=== PATIENT | female | born 1945 | race Caucasian/White ===

== ENCOUNTER 2018-01-08 11:15 | Inpatient (IN) | payer MEDICARE, BC ==
[2018-01-08 11:18] VITALS: BMI 24.2
--- NOTE | 2018-01-08 12:12 | ED PDOC ---
HPI: Psych/Substance Abuse Time Seen by Provider: 01/08/18 11:52 Chief Complaint (Nursing): Psychiatric Evaluation Chief Complaint (Provider): Psychiatric Evaluation History Per: Patient Onset/Duration Of Symptoms: Unknown Current Symptoms Are (Timing): Still Present Associated Symptoms: Suicidal Thoughts, Suicidal Plan Involuntary Hold By: None Additional Complaint(s): Jayla Sanchez is a 72 y/o female, with a past medical history of HTN, hypothyroidism, and aortic valve replacement, who presents to the ED due for suicidal ideation, onset is unclear. When questioned further patient was not a good historian and was not willing to give a plan or timing. She keeps repeating that she wants to be cremated and that she has many relatives. She repeats these statements over and over. EMS states that the patient's plan for suicide was to OD but patient did not provide any information regarding this. Patient is currently taking Coumadin. She denies any other complaints. PMD: None provided Per pharmacy in [place] Past Medical History Reviewed: Historical Data, Nursing Documentation, Vital Signs Vital Signs: Last Vital Signs Temp 98.2 F 01/08/18 11:18 Pulse 104 H 01/08/18 11:18 Resp 17 01/08/18 11:18 BP 173/71 H 01/08/18 11:18 Pulse Ox 98 01/08/18 11:18 - Medical History PMH: HTN, Hypothyroidism Denies: Diabetes, Hepatitis, HIV, Chronic Kidney Disease, Seizures, Sexually Transmitted Disease - Surgical History Surgical History: No Surg Hx - Family History Family History: States: Unknown Family Hx - Home Medications Home Medications: Ambulatory Orders Medication Instructions Recorded Enalapril Maleate [Vasotec] 10 mg PO DAILY 07/22/16 Ezetimibe [Zetia] 10 mg PO DAILY 07/22/16 Metoprolol Succinate XL [Toprol XL] 25 mg PO DAILY 07/22/16 Pravastatin Sodium [Pravachol] 40 mg PO DAILY 07/22/16 Warfarin [Coumadin] 8 mg PO DAILY 07/22/16 Levothyroxine [Synthroid] 88 mcg PO DAILY 01/08/18 - Allergies Allergies/Adverse Reactions: Allergies Allergy/AdvReac Type Severity Reaction Status Date / Time nitroglycerin Allergy ANAPHYLAXIS Verified 07/22/16 07:39 Penicillins Allergy RASH Verified 07/22/16 07:38 Review of Systems ROS Statement: Except As Marked, All Systems Reviewed And Found Negative Constitutional: Negative for: Fever Psych: Positive for: Suicidal ideation Physical Exam - Reviewed Nursing Documentation Reviewed: Yes Vital Signs Reviewed: Yes - Physical Exam Appears: Positive for: Non-toxic, No Acute Distress Head Exam: Positive for: ATRAUMATIC, NORMOCEPHALIC Skin: Positive for: Normal Color, Warm, Dry Eye Exam: Positive for: EOMI, Normal appearance, PERRL Neck: Positive for: Normal, Painless ROM Respiratory: Negative for: Respiratory Distress Extremity: Positive for: Normal ROM (upper and lower extremities). Negative for : Pedal Edema, Deformity Neurologic/Psych: Positive for: Alert, Oriented (x3), Gait (steady). Negative for: Motor/Sensory Deficits - Laboratory Results Result Diagrams: 01/08/18 12:50 01/08/18 12:50 - ECG O2 Sat by Pulse Oximetry: 98 (RA) Pulse Ox Interpretation: Normal Medical Decision Making Medical Decision Making: Time: 12:11 Initial Impression: suicidal ideation and psychosis. Differential diagnosis including but not limited to schizophrenia and bipolar disorder. Initial Plan: --Acetaminophen --Alcohol serum --BMP --EKG --PTT --PT --Drug Screen, urine --Salicylate --Crisis Eval --Chest portable [RAD] --ED Urine --CBC with differential --1:1 Observation --Urinalysis --Plan includes medical clearance and psych eval. 14:13 CXR FINDINGS: LUNGS: No active pulmonary disease. PLEURA: No significant pleural effusion identified, no pneumothorax apparent. CARDIOVASCULAR: Midline sternotomy and valvular prosthesis in place similar OSSEOUS STRUCTURES: Midline sternotomy VISUALIZED UPPER ABDOMEN: Normal. OTHER FINDINGS: None. IMPRESSION: No active disease. Scribe Attestation: Documented by Austin Carrillo, acting as a scribe for Nikko Rodriguez MD Provider Scribe Attestation: All medical record entries made by the Scribe were at my direction and personally dictated by me. I have reviewed the chart and agree that the record accurately reflects my personal performance of the history, physical exam, medical decision making, and the department course for this patient. I have also personally directed, reviewed, and agree with the discharge instructions and disposition. Disposition - Clinical Impression Clinical Impression: Coumadin toxicity, Dementia with psychosis - Patient ED Disposition Is Patient to be Admitted: Yes Discussed With : Terry Mccarthy Doctor Will See Patient In The: Hospital Counseled Patient/Family Regarding: Studies Performed, Diagnosis - Disposition Disposition Time: 16:30 Condition: FAIR - Pt Status Changed To: Hospital Disposition Of: Inpatient - Admit Certification Admit to Inpatient:: After my assessment, the patient will require hospitalization for at least two midnights. This is because of the severity of symptoms shown, intensity of services needed, and/or the medical risk in this patient being treated as an outpatient. - POA Present On Arrival: None
[2018-01-08 13:01] LABS: BASO % 0.4 % (0.0-2.0); EOS % 0.3 % (0.0-4.0); LYMPH # 0.6 K/uL (1.0-4.3); LYMPH % 8.4 % (20.0-40.0); MEAN CELL VOLUME 89.5 fl (81.0-99.0); MEAN CORPUSCULAR HGB CONC 33.5 g/dL (33.0-37.0); MEAN PLATELET VOLUME 8.5 fl (7.2-11.7); MONO # 0.5 K/uL (0.0-0.8); NEUT # 6.1 K/uL (1.8-7.0); NEUT % 83.9 % (50.0-75.0); PLATELET COUNT 247 K/uL (130-400); RBC 4.67 Mil/uL (3.80-5.20); RED CELL DISTRIBUTION WIDTH 14.4 % (11.5-14.5); WHITE BLOOD COUNT 7.3 K/uL (4.8-10.8)
[2018-01-08 13:12] LABS: BLOOD UREA NITROGEN 17 mg/dl (7-17); CALCIUM 9.6 mg/dL (8.4-10.2); GFR AFRICAN-AMERICAN > 60; GFR NON-AFRICAN AMERICAN > 60
[2018-01-08 13:16] LABS: ACETAMINOPHEN < 10.0 ug/ml (10.0-30.0); SALICYLATE < 1.0 mg/dl
--- NOTE | 2018-01-08 14:14 | RAD ---
HISTORY: medical clearance COMPARISON: 07/22/2016 FINDINGS: LUNGS: No active pulmonary disease. PLEURA: No significant pleural effusion identified, no pneumothorax apparent. CARDIOVASCULAR: Midline sternotomy and valvular prosthesis in place similar OSSEOUS STRUCTURES: Midline sternotomy VISUALIZED UPPER ABDOMEN: Normal. OTHER FINDINGS: None. IMPRESSION: No active disease.
[2018-01-08 14:59] LABS: LYMPHOCYTE 15 % (20-50); MONOCYTE 4 % (0-10); NEUTROPHIL 81 % (42-75); TOTAL CELLS COUNTED 100
[2018-01-08 15:02] LABS: PLATELET ESTIMATE NORMAL (NORMAL)
[2018-01-08 15:05] LABS: PROTHROMBIN TIME 128.6 Seconds (9.8-13.1)
[2018-01-08 15:06] LABS: PARTIAL THROMBOPLASTIN TIME 71.2 Seconds (25.6-37.1)
[2018-01-09] MEDS: Levothyroxine 88 MCG TAB PO SCH (05:52)
[2018-01-09 06:44] LABS: BASO % 0.3 % (0.0-2.0); EOS # 0.1 K/uL (0.0-0.7); EOS % 1.2 % (0.0-4.0); LYMPH # 1.3 K/uL (1.0-4.3); LYMPH % 18.6 % (20.0-40.0); MEAN CELL VOLUME 89.9 fl (81.0-99.0); MEAN CORPUSCULAR HEMOGLOBIN 30.1 pg (27.0-31.0); MEAN CORPUSCULAR HGB CONC 33.5 g/dL (33.0-37.0); MEAN PLATELET VOLUME 8.8 fl (7.2-11.7); MONO # 0.7 K/uL (0.0-0.8); MONO % 10.5 % (0.0-10.0); NEUT # 4.7 K/uL (1.8-7.0); NEUT % 69.4 % (50.0-75.0); RBC 4.65 Mil/uL (3.80-5.20); RED CELL DISTRIBUTION WIDTH 14.4 % (11.5-14.5); WHITE BLOOD COUNT 6.8 K/uL (4.8-10.8)
[2018-01-09 07:09] LABS: PARTIAL THROMBOPLASTIN TIME 70.7 Seconds (25.6-37.1)
[2018-01-09 07:10] LABS: INR 12.4 (0.9-1.2); PROTHROMBIN TIME 144.9 Seconds (9.8-13.1)
[2018-01-09 07:15] LABS: T4 12.8 ug/dl (5.5-11.0)
[2018-01-09 07:22] LABS: ALB/GLOB RATIO 1.4 (1.0-2.1); ALBUMIN 4.3 g/dL (3.5-5.0); ALT/SGPT 40 U/L (9-52); AST/SGOT 53 U/L (14-36); BLOOD UREA NITROGEN 14 mg/dl (7-17); GFR AFRICAN-AMERICAN > 60; GFR NON-AFRICAN AMERICAN > 60; HDL CHOLESTEROL 49 MG/DL (30-70)
[2018-01-09 07:33] LABS: LDL CHOLESTEROL 78 mg/dL (0-129)
[2018-01-09] MEDS: Pravastatin Sodium 40 MG TAB PO SCH (08:08)
[2018-01-09] MEDS: Metoprolol Succinate 25 mg XL Tab PO SCH (08:08)
--- NOTE | 2018-01-09 09:35 | CARD ---
APPROVED REPORT EKG Measurement Heart [id number] <Conclusion> Sinus tachycardia Nonspecific T wave abnormality Abnormal ECG
[2018-01-09] MEDS ORDERED: Phytonadione 10 mg/ml Inj (Adult) SC ONE (09:41)
[2018-01-09] MEDS ORDERED: Phytonadione 10 MG in Sodium Chloride 0.9% 50 ML IV ONE (10:00)
--- NOTE | 2018-01-09 11:22 | CP.PCM.HP ---
History of Present Illness - History of Present Illness History of Present Illness: CC: Psychiatric evaluation. 72 y/o F, Hx of Aortic valve replacement 11 yrs ago on Coumadin, Depression, Bipolar disorder, brought to ER [facility] 0[facility] 01/08/18 to be evaluated for Suicidal Ideation associated to plan to overdose and psychosis, repeating over and over the desired to be cremated, Pt with no relief of clinical condition. Aggravated factor: Increased agitation while at the ER, found with increased level of PT 144.9 , INR 12.4 , PTT 70.7 Aggravated factor: Not a good historian. No: Fever, chills, n/v/d, abdominal pain, urinary symptoms, CP, palpitations, SOB, cough, sick contact, recent travel out of [facility]. CT Head reveals Hyperdence basilar artery is in question which could indicate thrombosis. Present on Admission - Present on Admission Any Indicators Present on Admission: No Review of Systems - Review of Systems Systems not reviewed;Unavailable: Acuity of Condition, Dementia Past Patient History - Past Medical History & Family History Past Medical History?: Yes Pertinent Family History: Unknown - Past Social History Smoking Status: Never Smoked Alcohol: None Drugs: Denies Home Situation {Lives}: With Family - CARDIAC Hx Cardiac Disorders: Yes Hx Hypertension: Yes - PULMONARY Hx Respiratory Disorders: No Hx Tuberculosis: No - NEUROLOGICAL Hx Neurological Disorder: No Hx Seizures: No - HEENT Hx HEENT Problems: No - RENAL Hx Chronic Kidney Disease: No - ENDOCRINE/METABOLIC Hx Endocrine Disorders: Yes Hx Hypothyroidism: Yes - HEMATOLOGICAL/ONCOLOGICAL Hx Blood Disorders: No Hx Human Immunodeficiency Virus (HIV): No - INTEGUMENTARY Hx Dermatological Problems: No - MUSCULOSKELETAL/RHEUMATOLOGICAL Hx Musculoskeletal Disorders: No Hx Falls: No - GASTROINTESTINAL Hx Gastrointestinal Disorders: No - GENITOURINARY/GYNECOLOGICAL Hx Genitourinary Disorders: No Hx Sexually Transmitted Disorders: No - PSYCHIATRIC Hx Psychophysiologic Disorder: Yes (Delusion, Paranoia) Hx Schizophrenia: Yes Hx Substance Use: No - SURGICAL HISTORY Hx Surgeries: Yes Hx Valve Replacement: Yes (aortic valve replacement 11 yrs ago) Other/Comment: Thyroidectomy - ANESTHESIA Hx Anesthesia: Yes Hx Anesthesia Reactions: No Hx Malignant Hyperthermia: No Meds Allergies/Adverse Reactions: Allergies Allergy/AdvReac Type Severity Reaction Status Date / Time nitroglycerin Allergy ANAPHYLAXIS Verified 07/22/16 07:39 Penicillins Allergy RASH Verified 07/22/16 07:38 Physical Exam - Constitutional Appears: Agitated, Confused - Head Exam Head Exam: NORMAL INSPECTION - Eye Exam Eye Exam: PERRL - ENT Exam ENT Exam: Normal Exam - Neck Exam Neck exam: Positive for: Normal Inspection - Respiratory Exam Respiratory Exam: Clear to Auscultation Bilateral - Cardiovascular Exam Cardiovascular Exam: REGULAR RHYTHM - GI/Abdominal Exam GI & Abdominal Exam: Normal Bowel Sounds, Soft - Extremities Exam Extremities exam: Positive for: normal inspection - Back Exam Back exam: NORMAL INSPECTION - Neurological Exam Neurological exam: Alert, CN II-XII Intact, Reflexes Normal Additional comments: Confused, disoriented, restless, follows commands, no focal motor/sensory deficit - Psychiatric Exam Psychiatric exam: Anxious, Depressed - Skin Skin Exam: Warm Results - Vital Signs Recent Vital Signs: Last Vital Signs Temp 97.4 F L 01/09/18 07:42 Pulse 108 H 01/09/18 08:08 Resp 18 01/09/18 07:42 BP 169/93 H 01/09/18 08:08 Pulse Ox 94 L 01/09/18 07:42 reviewed Joya - Labs Result Diagrams: 01/09/18 05:40 01/09/18 05:40 Labs: Laboratory Results - last 24 hr 01/08/18 01/08/18 01/08/18 12:50 12:50 12:50 WBC 7.3 RBC 4.67 Hgb 14.0 Hct 41.8 MCV 89.5 MCH 30.0 MCHC 33.5 RDW 14.4 Plt Count 247 MPV 8.5 Neut % (Auto) 83.9 H Lymph % (Auto) 8.4 L [place] % (Auto) 7.0 Eos % (Auto) 0.3 Baso % (Auto) 0.4 Neut # (Auto) 6.1 Lymph # (Auto) 0.6 L [place] # (Auto) 0.5 Eos # (Auto) 0.0 Baso # (Auto) 0.0 Neutrophils % (Manual) 81 H Lymphocytes % (Manual) 15 L Monocytes % (Manual) 4 Platelet Estimate Normal PT INR APTT Sodium 141 Potassium 4.2 Chloride 103 Carbon Dioxide 23 Anion Gap 19 BUN 17 Creatinine 0.8 Est GFR ( Amer) > 60 Est GFR (Non-Af Amer) > 60 Random Glucose 102 Calcium 9.6 Total Bilirubin AST ALT Alkaline Phosphatase Total Protein Albumin Globulin Albumin/Globulin Ratio Triglycerides Cholesterol LDL Cholesterol Direct HDL Cholesterol Thyroxine (T4) TSH 3rd Generation Salicylates < 1.0 Acetaminophen < 10.0 L Alcohol, Quantitative < 10 01/08/18 01/09/18 01/09/18 14:23 05:40 05:40 WBC 6.8 RBC 4.65 Hgb 14.0 Hct 41.8 MCV 89.9 MCH 30.1 MCHC 33.5 RDW 14.4 Plt Count 238 MPV 8.8 Neut % (Auto) 69.4 Lymph % (Auto) 18.6 L [place] % (Auto) 10.5 H Eos % (Auto) 1.2 Baso % (Auto) 0.3 Neut # (Auto) 4.7 Lymph # (Auto) 1.3 [place] # (Auto) 0.7 Eos # (Auto) 0.1 Baso # (Auto) 0.0 Neutrophils % (Manual) Lymphocytes % (Manual) Monocytes % (Manual) Platelet Estimate PT 128.6 H* 144.9 H* INR 11.0 H 12.4 H D APTT 71.2 H 70.7 H Sodium Potassium Chloride Carbon Dioxide Anion Gap BUN Creatinine Est GFR ( Amer) Est GFR (Non-Af Amer) Random Glucose Calcium Total Bilirubin AST ALT Alkaline Phosphatase Total Protein Albumin Globulin Albumin/Globulin Ratio Triglycerides Cholesterol LDL Cholesterol Direct HDL Cholesterol Thyroxine (T4) TSH 3rd Generation Salicylates Acetaminophen Alcohol, Quantitative 01/09/18 05:40 WBC RBC Hgb Hct MCV MCH MCHC RDW Plt Count MPV Neut % (Auto) Lymph % (Auto) [place] % (Auto) Eos % (Auto) Baso % (Auto) Neut # (Auto) Lymph # (Auto) [place] # (Auto) Eos # (Auto) Baso # (Auto) Neutrophils % (Manual) Lymphocytes % (Manual) Monocytes % (Manual) Platelet Estimate PT INR APTT Sodium 141 Potassium 3.5 L Chloride 102 Carbon Dioxide 26 Anion Gap 17 BUN 14 Creatinine 0.7 Est GFR ( Amer) > 60 Est GFR (Non-Af Amer) > 60 Random Glucose 80 Calcium 9.0 Total Bilirubin 0.6 AST 53 H ALT 40 Alkaline Phosphatase 73 Total Protein 7.4 Albumin 4.3 Globulin 3.1 Albumin/Globulin Ratio 1.4 Triglycerides 86 Cholesterol 172 LDL Cholesterol Direct 78 HDL Cholesterol 49 Thyroxine (T4) 12.8 H TSH 3rd Generation 2.02 Salicylates Acetaminophen Alcohol, Quantitative reviewed J.P. - EKG Data EKG comments: reviewed J.P. - Imaging and Cardiology Chest x-ray Status: Report reviewed by me (Joya) Assessment & Plan (1) Coumadin toxicity Status: Acute Priority: High (2) Dementia with psychosis Status: Acute Priority: High (3) HTN (hypertension) Status: Chronic Priority: Medium (4) Hyperlipidemia Status: Chronic (5) Hypothyroid Status: Chronic (6) H/O aortic valve replacement Status: Acute - Assessment and Plan (Free Text) Plan: Keep in 1:1 observation, F/U Echo, continue Ativan, Pravachol and rest of tx, CTA Head and Neck , f/u Psychiatric, Neurology and Cardiology consult. - Date & Time Date: 01/09/18 Time: 10:00
[2018-01-09 11:35] LABS: SQUAMOUS EPITHIAL 1 /hpf (0-5); URINE BILIRUBIN NEGATIVE (NEGATIVE); URINE BLOOD SMALL (NEGATIVE); URINE CLARITY CLEAR (Clear); URINE COLOR YELLOW (YELLOW); URINE GLUCOSE (UA) NEG (Normal); URINE LEUKOCYTE ESTERASE TRACE Leu/uL (Negative); URINE PROTEIN NEGATIVE (NEGATIVE); URINE UROBILINOGEN 0.2-1.0 mg/dL (0.2-1.0)
--- NOTE | 2018-01-09 11:43 | CT ---
PROCEDURE: CT HEAD WITHOUT CONTRAST. HISTORY: Psychosis COMPARISON: Noncontrast head CT 07/22/2016. TECHNIQUE: Axial computed tomography images were obtained through the head/brain without intravenous contrast. Radiation dose: Total exam DLP = 754.32 mGy-cm. This CT exam was performed using one or more of the following dose reduction techniques: Automated exposure control, adjustment of the mA and/or kV according to patient size, and/or use of iterative reconstruction technique. FINDINGS: HEMORRHAGE: No intracranial hemorrhage. BRAIN: Corticomedullary differentiation remains good throughout. Proportional, diffuse cerebral atrophy and chronic microangiopathy are reiterated. No interval mass effect is identified or suspicious extra-axial fluid collection in the midline brain and appears diffusely unremarkable nevertheless. Posterior fossa contents remain unremarkable including the brainstem. Still, the basilar artery appears relatively hyperdense compared to prior CT suspicious for potential thrombosis. Follow-up CT angiogram of the brain is advised to exclude interval thrombosis. VENTRICLES: Unremarkable. No hydrocephalus. CALVARIUM: Unremarkable. PARANASAL SINUSES: Unremarkable as visualized. No significant inflammatory changes. MASTOID AIR CELLS: Unremarkable as visualized. No inflammatory changes. OTHER FINDINGS: None. IMPRESSION: Stable age related neuro degenerative changes are appreciated throughout, however, hyperdense basilar artery is in question which could indicate thrombosis and follow-up CT angiogram of the brain is advised to exclude potential thrombosis. Discussed with Dr. Mccarthy with written down and read back verification 01/09/2018 a.m..
[2018-01-09 12:06] LABS: BARBITURATES, UR NEGATIVE (NEGATIVE); BENZODIAZEPINES, UR NEGATIVE (NEGATIVE); OPIATES, UR NEGATIVE (NEGATIVE); PHENCYCLIDINE, UR NEGATIVE (NEGATIVE)
--- NOTE | 2018-01-09 13:42 | CARD ---
APPROVED REPORT EXAM: Two-dimensional and M-mode echocardiogram with Doppler and color Doppler. Other Information Quality : FairRhythm : NSR Technically limited study due to Patient not cooperative,refused to complete study. INDICATION Aortic Valve Disease Surgery/Intervention Status/Post Aortic Valve Replacement: 2D DIMENSIONS IVSd1.16 (0.7-1.1cm)LVDd3.39 (3.9-5.9cm) LVOT Diameter1.54 (1.8-2.4cm)PWd0.94 (0.7-1.1cm) IVSs1.40 (0.8-1.2cm)LVDs1.87 (2.5-4.0cm) FS (%) 44.9 %PWs1.25 (0.8-1.2cm) M-Mode DIMENSIONS Left Atrium (MM)3.09 (2.5-4.0cm)IVSd1.05 (0.7-1.1cm) Aortic Root1.96 (2.2-3.7cm)LVDd3.23 (4.0-5.6cm) Aortic Cusp Exc.1.24 (1.5-2.0cm)PWd1.08 (0.7-1.1cm) IVSs1.05 cmFS (%) 47 % LVDs1.71 (2.0-3.8cm)PWs1.24 cm Mitral Valve E/A ratio0.0 TDI E/Lateral E'0.0E/Medial E'0.0 LEFT VENTRICLE The left ventricle is normal size. There is normal left ventricular wall thickness. The left ventricular function is normal. The left ventricular ejection fraction is within the normal range. The Ejection Fraction is 65-70%. There is normal LV segmental wall motion. The left ventricular diastolic function is normal. RIGHT VENTRICLE The right ventricle is normal size. The right ventricular systolic function is normal. ATRIA The left atrium size is normal. The right atrium size is normal. AORTIC VALVE The aortic valve is normal in structure. No aortic regurgitation is present. There is no aortic valvular stenosis. The prosthetic aortic valve appears normal. MITRAL VALVE The mitral valve is normal in structure. There is no mitral valve stenosis. There is no mitral valve regurgitation noted. TRICUSPID VALVE The tricuspid valve is normal in structure. There is no tricuspid valve regurgitation noted. PULMONIC VALVE The pulmonary valve is normal in structure. There is no pulmonic valvular regurgitation. GREAT VESSELS The aortic root is normal in size. The IVC is normal in size and collapses >50% with inspiration. PERICARDIAL EFFUSION The pericardium appears normal. <Conclusion> The left ventricle is normal size. The left ventricular function is normal. The left ventricular ejection fraction is within the normal range. The Ejection Fraction is 65-70%. The prosthetic aortic valve appears normal.
--- NOTE | 2018-01-09 14:51 | CP.PCM.CON ---
History of Present Illness - History of Present Illness History of Present Illness: Neurology Consultation Note: Mrs. Sanchez is a 72-year-old woman who is admitted for coumadin toxicity and is currently agitated . She does not have any focal neurological deficits. No apparent cranial nerve deficits. When I saw the patient, and informed her I am a neurologist, she insisted that she has a neurologist at [place] and would prefer to go there. CT scan of the head showed a density in the basilar ( possible thrombus), but this does not seem to go along with the patient's symptoms. Review of Systems - Review of Systems All systems: reviewed and no additional remarkable complaints except Past Patient History - Past Medical History & Family History Past Medical History?: Yes - Past Social History Smoking Status: Never Smoked - CARDIAC Hx Cardiac Disorders: Yes Hx Hypertension: Yes - PULMONARY Hx Respiratory Disorders: No Hx Tuberculosis: No - NEUROLOGICAL Hx Neurological Disorder: No Hx Seizures: No - HEENT Hx HEENT Problems: No - RENAL Hx Chronic Kidney Disease: No - ENDOCRINE/METABOLIC Hx Endocrine Disorders: Yes Hx Hypothyroidism: Yes - HEMATOLOGICAL/ONCOLOGICAL Hx Blood Disorders: No Hx Human Immunodeficiency Virus (HIV): No - INTEGUMENTARY Hx Dermatological Problems: No - MUSCULOSKELETAL/RHEUMATOLOGICAL Hx Musculoskeletal Disorders: No Hx Falls: No - GASTROINTESTINAL Hx Gastrointestinal Disorders: No - GENITOURINARY/GYNECOLOGICAL Hx Genitourinary Disorders: No Hx Sexually Transmitted Disorders: No - PSYCHIATRIC Hx Psychophysiologic Disorder: Yes (Delusion, Paranoia) Hx Schizophrenia: Yes Hx Substance Use: No - SURGICAL HISTORY Hx Surgeries: Yes Hx Valve Replacement: Yes (aortic valve replacement 11 yrs ago) Other/Comment: Aorta replacement - ANESTHESIA Hx Anesthesia: Yes Hx Anesthesia Reactions: No Hx Malignant Hyperthermia: No Meds Allergies/Adverse Reactions: Allergies Allergy/AdvReac Type Severity Reaction Status Date / Time nitroglycerin Allergy ANAPHYLAXIS Verified 07/22/16 07:39 Penicillins Allergy RASH Verified 07/22/16 07:38 - Medications Medications: Current Medications Enalapril Maleate (Vasotec) 10 mg PO DAILY [facility] Last Admin: 01/09/18 08:08 Dose: 10 mg Levothyroxine Sodium (Synthroid) 88 mcg PO DAILY@0630 [facility] Last Admin: 01/09/18 05:52 Dose: 88 mcg Lorazepam (Ativan) 1 mg IVP Q4 PRN PRN Reason: Agitation Last Admin: 01/09/18 00:07 Dose: 1 mg Metoprolol Succinate (Toprol Xl) 25 mg PO DAILY [facility] Last Admin: 01/09/18 08:08 Dose: 25 mg Pravastatin Sodium (Pravachol) 40 mg PO DAILY [facility] Last Admin: 01/09/18 08:08 Dose: 40 mg Physical Exam - Neurological Exam Neurological exam: Alert, Altered, CN II-XII Intact, Normal Gait, Reflexes Normal Results - Vital Signs Recent Vital Signs: Last Vital Signs Temp 97.4 F L 01/09/18 07:42 Pulse 108 H 01/09/18 08:08 Resp 18 01/09/18 07:42 BP 169/93 H 01/09/18 08:08 Pulse Ox 94 L 01/09/18 07:42 - Labs Result Diagrams: 01/09/18 05:40 01/09/18 05:40 Labs: Laboratory Results - last 24 hr 01/08/18 01/08/18 01/08/18 11:00 12:50 14:23 WBC RBC Hgb Hct MCV MCH MCHC RDW Plt Count MPV Neut % (Auto) Lymph % (Auto) King % (Auto) Eos % (Auto) Baso % (Auto) Neut # (Auto) Lymph # (Auto) King # (Auto) Eos # (Auto) Baso # (Auto) Neutrophils % (Manual) 81 H Lymphocytes % (Manual) 15 L Monocytes % (Manual) 4 Platelet Estimate Normal PT 128.6 H* INR 11.0 H APTT 71.2 H Sodium Potassium Chloride Carbon Dioxide Anion Gap BUN Creatinine Est GFR ( Amer) Est GFR (Non-Af Amer) Random Glucose Calcium Total Bilirubin AST ALT Alkaline Phosphatase Total Protein Albumin Globulin Albumin/Globulin Ratio Triglycerides Cholesterol LDL Cholesterol Direct HDL Cholesterol Thyroxine (T4) TSH 3rd Generation Urine Color Urine Clarity Urine pH Ur Specific [place] Urine Protein Urine Glucose (UA) Urine Ketones Urine Blood Urine Nitrate Urine Bilirubin Urine Urobilinogen Ur Leukocyte Esterase Urine RBC (Auto) Urine Microscopic WBC Ur Squamous Epith Cells Urine Opiates Screen Negative Urine Methadone Screen Negative Ur Barbiturates Screen Negative Ur Phencyclidine Scrn Negative Ur Amphetamines Screen Negative U Benzodiazepines Scrn Negative U Oth Cocaine Metabols Negative U Cannabinoids Screen Negative 01/09/18 01/09/18 01/09/18 05:40 05:40 05:40 WBC 6.8 RBC 4.65 Hgb 14.0 Hct 41.8 MCV 89.9 MCH 30.1 MCHC 33.5 RDW 14.4 Plt Count 238 MPV 8.8 Neut % (Auto) 69.4 Lymph % (Auto) 18.6 L [place] % (Auto) 10.5 H Eos % (Auto) 1.2 Baso % (Auto) 0.3 Neut # (Auto) 4.7 Lymph # (Auto) 1.3 King # (Auto) 0.7 Eos # (Auto) 0.1 Baso # (Auto) 0.0 Neutrophils % (Manual) Lymphocytes % (Manual) Monocytes % (Manual) Platelet Estimate PT 144.9 H* INR 12.4 H D APTT 70.7 H Sodium 141 Potassium 3.5 L Chloride 102 Carbon Dioxide 26 Anion Gap 17 BUN 14 Creatinine 0.7 Est GFR ( Amer) > 60 Est GFR (Non-Af Amer) > 60 Random Glucose 80 Calcium 9.0 Total Bilirubin 0.6 AST 53 H ALT 40 Alkaline Phosphatase 73 Total Protein 7.4 Albumin 4.3 Globulin 3.1 Albumin/Globulin Ratio 1.4 Triglycerides 86 Cholesterol 172 LDL Cholesterol Direct 78 HDL Cholesterol 49 Thyroxine (T4) 12.8 H TSH 3rd Generation 2.02 Urine Color Urine Clarity Urine pH Ur Specific [place] Urine Protein Urine Glucose (UA) Urine Ketones Urine Blood Urine Nitrate Urine Bilirubin Urine Urobilinogen Ur Leukocyte Esterase Urine RBC (Auto) Urine Microscopic WBC Ur Squamous Epith Cells Urine Opiates Screen Urine Methadone Screen Ur Barbiturates Screen Ur Phencyclidine Scrn Ur Amphetamines Screen U Benzodiazepines Scrn U Oth Cocaine Metabols U Cannabinoids Screen 01/09/18 11:12 WBC RBC Hgb Hct MCV MCH MCHC RDW Plt Count MPV Neut % (Auto) Lymph % (Auto) King % (Auto) Eos % (Auto) Baso % (Auto) Neut # (Auto) Lymph # (Auto) King # (Auto) Eos # (Auto) Baso # (Auto) Neutrophils % (Manual) Lymphocytes % (Manual) Monocytes % (Manual) Platelet Estimate PT INR APTT Sodium Potassium Chloride Carbon Dioxide Anion Gap BUN Creatinine Est GFR ( Amer) Est GFR (Non-Af Amer) Random Glucose Calcium Total Bilirubin AST ALT Alkaline Phosphatase Total Protein Albumin Globulin Albumin/Globulin Ratio Triglycerides Cholesterol LDL Cholesterol Direct HDL Cholesterol Thyroxine (T4) TSH 3rd Generation Urine Color Yellow Urine Clarity Clear Urine pH 5.0 Ur Specific [place] 1.015 Urine Protein Negative Urine Glucose (UA) Neg Urine Ketones 80 Urine Blood Small Urine Nitrate Negative Urine Bilirubin Negative Urine Urobilinogen 0.2-1.0 Ur Leukocyte Esterase Trace Urine RBC (Auto) 4 H Urine Microscopic WBC 4 Ur Squamous Epith Cells 1 Urine Opiates Screen Urine Methadone Screen Ur Barbiturates Screen Ur Phencyclidine Scrn Ur Amphetamines Screen U Benzodiazepines Scrn U Oth Cocaine Metabols U Cannabinoids Screen Assessment & Plan (1) Coumadin toxicity Assessment and Plan: There is a possibility of having thrombosis with coumadin toxicity as well. Therefor the finding on the CT head is concerning. I would like to obtain a CTA of the head/neck to evaluate if this is artifact or a true finding. If normal flow is detected in the intracranial vessels, then I have no further recommendations. Otherwise, we will discuss further. Thank you. Status: Acute (2) Dementia with psychosis Status: Acute (3) UTI (urinary tract infection), uncomplicated Status: Acute
--- NOTE | 2018-01-09 23:05 | CON ---
DATE: 01/09/2018 CARDIOLOGY CONSULTATION REASON FOR CONSULTATION: Coumadin toxicity. HISTORY OF PRESENT ILLNESS: The patient is a 72 years old female who according to her underwent aortic valve replacement for leaky aortic valve 11 years ago at [facility] in [facility], and she follows with a physical therapy director at [place]. She is on Coumadin therapy 4 mg daily and on , she took one and half tablets of the 4 mg. The patient has a history of goiter, status post thyroidectomy and currently is hypothyroid. The patient was admitted because of suicidal ideations. The patient is not a good historian at this time, but she denies being suicidal neither now nor in the past. She is confused to place and at times, she has erratic answers. It is not clear that the patient has overtaken her Coumadin medication. The patient herself denies that. The patient was admitted at this time because of Coumadin toxicity. On her prior visit in 07/2016, the patient did have also Coumadin toxicity. At that time in 07/2016, the patient's INR on admission was more than 12. The patient denies any bleeding. The patient denies any chest pain or shortness of breath. PAST MEDICAL HISTORY: Hyperthyroidism, status post thyroidectomy; aortic valve replacement for aortic insufficiency according to the patient 11 years ago. SOCIAL HISTORY: Nonsmoker. She is and lives with her according to her. MEDICATIONS: The patient's home medications include Pravachol, Zetia, enalapril, Toprol-XL, Coumadin, and Synthroid. REVIEW OF SYSTEMS: No reported fever. No reported hypertension and no reported overt bleeding. PHYSICAL EXAMINATION: GENERAL: The patient is an elderly female who does not appear to be in any distress at this time. VITAL SIGNS: Blood pressure 169/93, heart rate 108, temperature 97.4, respirations 18. HEENT: Normocephalic. CHEST: Clear. HEART: S1 and S2 regular. ABDOMEN: Soft. EXTREMITIES: No edema. LABORATORY DATA: Hemoglobin and hematocrit 14 and 41.8, white count 6.8, platelet count 238,000. INR on admission was 11 and today is 12.4. SMA-7 today is within normal limits except for potassium of 3.5. TSH is within normal limits. T4 is elevated at 12.8. EKG revealed sinus tachycardia at the rate of 106 with nonspecific Q-wave changes. ASSESSMENT: 1. Coumadin toxicity. 2. Suicidal ideation. 3. Rule out cerebrovascular accident. RECOMMENDATIONS: We will obtain a CT scan without contrast. I ordered vitamin K 10 mg subcutaneously now. I will follow echocardiograph study performed today, and I will attempt to reach the patient's to get more historical information about the patient and whether she really intentionally overtook Coumadin. The patient will also be evaluated by psychiatrist today. Thor Koroma MD
[2018-01-10] MEDS: Levothyroxine 88 MCG TAB PO SCH ×2 (06:23→08:31)
[2018-01-10 07:17] LABS: INR 7.2 (0.9-1.2)
[2018-01-10 07:19] LABS: PROTHROMBIN TIME 83.2 Seconds (9.8-13.1)
[2018-01-10] MEDS: Metoprolol Succinate 25 mg XL Tab PO SCH (08:31)
[2018-01-10] MEDS: Pravastatin Sodium 40 MG TAB PO SCH (08:31)
--- NOTE | 2018-01-10 09:54 | CP.PCM.PN ---
Subjective - Date & Time of Evaluation Date of Evaluation: 01/10/18 Time of Evaluation: 09:46 - Subjective Subjective: Ms. Sanchez was seen and examined at the bedside. She is awake, but confused. She is unable to participate during assessment able to move upper extremities. Her speech is clear, talks regarding her previous surgeries. She refused CTA yesterday will re-attempt today.She remains on 1:1 sitter for patient safety. There was no untoward events overnight. Objective - Vital Signs/Intake and Output Vital Signs (last 24 hours): Temp Pulse Resp BP Pulse Ox 97.4 F L 91 H 20 153/90 H 97 01/10/18 08:52 01/10/18 08:52 01/10/18 08:52 01/10/18 08:52 01/10/18 08:52 - Medications Medications: Current Medications Enalapril Maleate (Vasotec) 10 mg PO DAILY [facility] Last Admin: 01/10/18 08:31 Dose: 10 mg Levothyroxine Sodium (Synthroid) 88 mcg PO DAILY@0630 [facility] Last Admin: 01/10/18 08:31 Dose: 88 mcg Lorazepam (Ativan) 1 mg IVP Q4 PRN PRN Reason: Agitation Last Admin: 01/09/18 00:07 Dose: 1 mg Lorazepam (Ativan) 1 mg IM Q3 PRN PRN Reason: Agitation Last Admin: 01/09/18 23:07 Dose: 1 mg Metoprolol Succinate (Toprol Xl) 25 mg PO DAILY [facility] Last Admin: 01/10/18 08:31 Dose: 25 mg Pravastatin Sodium (Pravachol) 40 mg PO DAILY [facility] Last Admin: 01/10/18 08:31 Dose: 40 mg - Labs Labs: 01/09/18 05:40 01/09/18 05:40 PT 83.2 Seconds (9.8-13.1) H* 01/10/18 05:25 INR 7.2 (0.9-1.2) H D 01/10/18 05:25 APTT 70.7 Seconds (25.6-37.1) H 01/09/18 05:40 - Constitutional Appears: No Acute Distress - Head Exam Head Exam: NORMAL INSPECTION - Neurological Exam Neurological Exam: Awake Neuro motor strength exam: Left Upper Extremity: 4, Right Upper Extremity: 4, Left Lower Extremity: 3, Right Lower Extremity: 3 Additional comments: awake, with episode of confusion, unable to participate during assessment. Assessment and Plan (1) Coumadin toxicity Assessment & Plan: Case discussed with Dr. Guzman, continue all current medical regimen. Pending CTA of the head/neck to evaluate if this is artifact or a true finding. Recommend hydration. Status: Acute
[2018-01-10] MEDS ORDERED: Iodixanol 320 MG/ML 100 ML BOTTLE IV ONE (10:51)
[2018-01-10] MEDS ORDERED: Sodium Chloride 0.9% 50 ML IV ONE (10:51)
[2018-01-10] MEDS ORDERED: Phytonadione 10 mg/ml Inj (Adult) SC ONE (11:50)
[2018-01-10] MEDS ORDERED: Phytonadione 10 MG in Sodium Chloride 0.9% 50 ML IV ONE (12:15)
--- NOTE | 2018-01-10 12:25 | CT ---
PROCEDURE: CT Angiography of the Brain and Neck. HISTORY: possible posterior circ thrombus COMPARISON: None available. TECHNIQUE: CT angiography of the intracranial and neck arteries was performed. Coronal and sagittal maximum intensity projection reformatted images were generated. Contrast Dose: Visipaque 320, 99 cc Radiation dose:Total exam DLP = 1145.87 mGy-cm. This CT exam was performed using one or more of the following dose reduction techniques: Automated exposure control, adjustment of the mA and/or kV according to patient size, and/or use of iterative reconstruction technique. FINDINGS: INTERNAL CEREBRAL ARTERIES: Sexu-ij-[id number] cavernous carotid atherosclerosis bilaterally without significant stenosis resulting. The skull base, petrous, and supraclinoid segments are bilaterally widely patent. ANTERIOR CEREBRAL ARTERIES: Unremarkable. A1 and A2 segments are widely patent. Smaller distal branches unremarkable, as visualized. MIDDLE CEREBRAL ARTERIES: Unremarkable. M1 and M2 segments are widely patent. Perisylvian branches grossly symmetric. POSTERIOR CIRCULATION: Basilar Artery: Unremarkable. Distal Vertebral Arteries: Kixq-as-jbhiyaum atherosclerosis dwin-gh-lrxtpmaf stenosis noted. Codominant vertebrobasilar circulation is identified. . Posterior Cerebral Arteries: Unremarkable. Posterior Inferior Cerebellar Arteries: Unremarkable. NECK CTA: Common Carotid arteries: Common origin innominate and left common carotid arteries. The bilateral common carotid appear widely patent from their origins to their bifurcations with no significant stenosis appreciated. Trace bilateral carotid bulbar atherosclerosis identified. No evidence to suggest common carotid artery dissection. Internal Carotid arteries: No significant stenosis is appreciated throughout the cervical internal carotid artery segments bilaterally and there is no evidence of dissection either. External Carotid arteries: Appear unremarkable bilaterally. Vertebral arteries: The bilateral vertebral arteries appear normal in caliber from their origins to their junction with the basilar artery. No significant stenosis or definite pattern of dissection. ANEURYSM/ VASCULAR MALFORMATIONS: None. OTHER FINDINGS: None. IMPRESSION: Unremarkable CT Angiography of the Brain.
--- NOTE | 2018-01-10 13:38 | CP.PCM.PN ---
Subjective - Date & Time of Evaluation Date of Evaluation: 01/10/18 Time of Evaluation: 13:20 - Subjective Subjective: awake , confused , on 1:1 Objective - Vital Signs/Intake and Output Vital Signs (last 24 hours): Temp Pulse Resp BP Pulse Ox 97.4 F L 91 H 20 153/90 H 97 01/10/18 08:52 01/10/18 08:52 01/10/18 08:52 01/10/18 08:52 01/10/18 08:52 - Medications Medications: Current Medications Enalapril Maleate (Vasotec) 10 mg PO DAILY [facility] Last Admin: 01/10/18 08:31 Dose: 10 mg Levothyroxine Sodium (Synthroid) 88 mcg PO DAILY@0630 [facility] Last Admin: 01/10/18 08:31 Dose: 88 mcg Lorazepam (Ativan) 1 mg IVP Q4 PRN PRN Reason: Agitation Last Admin: 01/09/18 00:07 Dose: 1 mg Lorazepam (Ativan) 1 mg IM Q3 PRN PRN Reason: Agitation Last Admin: 01/09/18 23:07 Dose: 1 mg Metoprolol Succinate (Toprol Xl) 25 mg PO DAILY [facility] Last Admin: 01/10/18 08:31 Dose: 25 mg Pravastatin Sodium (Pravachol) 40 mg PO DAILY [facility] Last Admin: 01/10/18 08:31 Dose: 40 mg - Labs Labs: 01/09/18 05:40 01/09/18 05:40 PT 83.2 Seconds (9.8-13.1) H* 01/10/18 05:25 INR 7.2 (0.9-1.2) H D 01/10/18 05:25 APTT 70.7 Seconds (25.6-37.1) H 01/09/18 05:40 Assessment and Plan (1) Coumadin toxicity Status: Resolved (2) Dementia with psychosis Status: Acute (3) Schizophrenia Status: Acute (4) HTN (hypertension) Status: Chronic (5) Hyperlipidemia Status: Chronic (6) Hypothyroid Status: Chronic (7) S/P AVR (aortic valve replacement) Status: Chronic - Assessment and Plan (Free Text) Plan: Head Neck CTA neg , no thrombosis, monitor , PT PTT INR, Psychiatric retirement sales consultant recommended involuntary admission to [facility] Psych unit
--- NOTE | 2018-01-10 13:48 | CP.PCM.CON ---
History of Present Illness - History of Present Illness History of Present Illness: 72 y/o F, Hx of Aorta replacement 11 yrs ago on Coumadin, schizophrenia brought to ER [facility] 0n 01/08/18 to be evaluated for Suicidal Ideation associated to plan to overdose and psychosis, pt on evaluation presenting with disorganized thought process, stating she is in hospital because she already and had heart attack pt paranoid stating she knows people are after her presenting with loose association, internally preoccupied . appears responding to internal stimuli , floridly psychotic , denied current suicidal ideation denied command hallucinations Past Patient History - Past Medical History & Family History Past Medical History?: Yes - Past Social History Smoking Status: Never Smoked Alcohol: None Drugs: Denies Home Situation {Lives}: With Family - CARDIAC Hx Cardiac Disorders: Yes Hx Hypertension: Yes - PULMONARY Hx Respiratory Disorders: No Hx Tuberculosis: No - NEUROLOGICAL Hx Neurological Disorder: No Hx Seizures: No - HEENT Hx HEENT Problems: No - RENAL Hx Chronic Kidney Disease: No - ENDOCRINE/METABOLIC Hx Endocrine Disorders: Yes Hx Hypothyroidism: Yes - HEMATOLOGICAL/ONCOLOGICAL Hx Blood Disorders: No Hx Human Immunodeficiency Virus (HIV): No - INTEGUMENTARY Hx Dermatological Problems: No - MUSCULOSKELETAL/RHEUMATOLOGICAL Hx Musculoskeletal Disorders: No Hx Falls: No - GASTROINTESTINAL Hx Gastrointestinal Disorders: No - GENITOURINARY/GYNECOLOGICAL Hx Genitourinary Disorders: No Hx Sexually Transmitted Disorders: No - PSYCHIATRIC Hx Psychophysiologic Disorder: Yes (Delusion, Paranoia) Hx Schizophrenia: Yes Hx Substance Use: No - SURGICAL HISTORY Hx Surgeries: Yes Hx Valve Replacement: Yes (aortic valve replacement 11 yrs ago) Other/Comment: Aorta replacement - ANESTHESIA Hx Anesthesia: Yes Hx Anesthesia Reactions: No Hx Malignant Hyperthermia: No Meds Allergies/Adverse Reactions: Allergies Allergy/AdvReac Type Severity Reaction Status Date / Time nitroglycerin Allergy ANAPHYLAXIS Verified 07/22/16 07:39 Penicillins Allergy RASH Verified 07/22/16 07:38 - Medications Medications: Current Medications Enalapril Maleate (Vasotec) 10 mg PO DAILY [facility] Last Admin: 01/10/18 08:31 Dose: 10 mg Levothyroxine Sodium (Synthroid) 88 mcg PO DAILY@0630 [facility] Last Admin: 01/10/18 08:31 Dose: 88 mcg Lorazepam (Ativan) 1 mg IVP Q4 PRN PRN Reason: Agitation Last Admin: 01/09/18 00:07 Dose: 1 mg Lorazepam (Ativan) 1 mg IM Q3 PRN PRN Reason: Agitation Last Admin: 01/09/18 23:07 Dose: 1 mg Metoprolol Succinate (Toprol Xl) 25 mg PO DAILY [facility] Last Admin: 01/10/18 08:31 Dose: 25 mg Pravastatin Sodium (Pravachol) 40 mg PO DAILY [facility] Last Admin: 01/10/18 08:31 Dose: 40 mg Physical Exam - Psychiatric Exam Additional comments: pt seen in bed speech disorganized, over productive , tangential though process with loose association, delusions of persecution poor insight and judgment Results - Vital Signs Recent Vital Signs: Last Vital Signs Temp 97.4 F L 01/10/18 08:52 Pulse 91 H 01/10/18 08:52 Resp 20 01/10/18 08:52 BP 153/90 H 01/10/18 08:52 Pulse Ox 97 01/10/18 08:52 - Labs Result Diagrams: 01/09/18 05:40 01/09/18 05:40 Labs: Laboratory Results - last 24 hr 01/10/18 05:25 PT 83.2 H* INR 7.2 H D Assessment & Plan - Assessment and Plan (Free Text) Assessment: schizophrenia disorganized type Plan: pt at current mental status floridly psychotic, disorganized, refusing admission to psychiatry pt needs to be screened for involuntary admission to psychiatry upon medical clearance
--- NOTE | 2018-01-10 17:43 | PN ---
DATE: 01/10/2018 SUBJECTIVE: I attempted to reach the family on the phone number listed as land line [phone], but it was nonworking number. I did call the cell number, which is [phone], and I left a voice message with a call back number to my main office number. The patient at this time is confused and she is on one-to-one watch. PHYSICAL EXAMINATION: VITAL SIGNS: Blood pressure 153/90, heart rate 91, temperature 97.4, and respirations 20. No reported bleeding. HEENT: Normocephalic. CHEST: Clear. HEART: S1 and S2 regular. ABDOMEN: Soft. EXTREMITIES: No edema. LABORATORY DATA: Today's INR is 7.2, PTT 83.2. Head and neck MRA unremarkable, CT angio. Brain CAT scan, stable, age-related. No regenerative changes appreciated throughout; however, hyperdense basilar artery in question, which could indicate thrombosis and followup CT angiogram was recommended. ASSESSMENT: 1. Coumadin toxicity. International normalized ratio is improving. No overt bleeding so far. 2. Status post aortic valve replacement. 3. Suicidal ideation. 4. Hypothyroidism. RECOMMENDATIONS: I did order another dose of subcutaneous vitamin K 10 mg to be administered today. Continue Ativan 1 mg IM every 3 hours p.r.n. for agitation, Synthroid at 88 mcg daily, Toprol-XL 25 mg once a day, Vasotec 10 mg once a day. Thor Koroma MD
[2018-01-11] MEDS: Levothyroxine 88 MCG TAB PO SCH (06:12)
[2018-01-11 08:21] LABS: INR 1.2 (0.9-1.2)
[2018-01-11] MEDS: Metoprolol Succinate 25 mg XL Tab PO SCH (09:41)
[2018-01-11] MEDS: Pravastatin Sodium 40 MG TAB PO SCH (09:41)
--- NOTE | 2018-01-11 11:20 | CT ---
PROCEDURE: CT HEAD WITHOUT CONTRAST. HISTORY: r/o hemorrhage, unresponsive COMPARISON: None available. TECHNIQUE: Axial computed tomography images were obtained through the head/brain without intravenous contrast. Radiation dose: Total exam DLP = mGy-cm. This CT exam was performed using one or more of the following dose reduction techniques: Automated exposure control, adjustment of the mA and/or kV according to patient size, and/or use of iterative reconstruction technique. FINDINGS: HEMORRHAGE: No intracranial hemorrhage. BRAIN: No mass effect or edema. Chronic microvascular ischemic changes. VENTRICLES: Unremarkable. No hydrocephalus. CALVARIUM: Unremarkable. PARANASAL SINUSES: Unremarkable as visualized. No significant inflammatory changes. MASTOID AIR CELLS: Unremarkable as visualized. No inflammatory changes. OTHER FINDINGS: None. IMPRESSION: No intracranial bleed..
--- NOTE | 2018-01-11 11:41 | PCM.RRT ---
<Vargas,Jamitch - Last Filed: 01/11/18 12:48> REED MAKER Nurse Assessment - Situation Location: Med/Surg Room Number: 652-2 REED MAKER Reason for Call: Change in Mental Status - IV IV Inserted during REED MAKER?: No - Diagnostic Test Ordered EKG: Yes CT Scan: Yes - Stat Labs Ordered REED MAKER Stat Labs Ordered: CBC, BMP, PT/PTT, TROPONIN CPR started during REED MAKER?: No - [place] Coma Scale Coma Scale Eye Opening: To pain Coma Scale Motor: Obeys Commands Movement Coma Scale Verbal: Confused/able to answer Coma Scale Total: 12 I.Reason for REED MAKER - A) Acute Change in Patient: (Select all that apply): Acute change in mental status Subjective: REED MAKER was called for 72 y/o F, with PMH of Aortic valve replacement 11 yrs ago on Coumadin, Depression, Bipolar disorder who admitted for Coumadin toxicity due to Acute onset of AMS. As per RN, patient got unresponsive in bathroom while urinating, no BM. Upon arrival, patient was spontaneously moving all extremities , responding to pain, lethargic, alert awake orientated to her baseline, patient is mumbling words. VS: 164/82, 77, Sat 95% RA. EKG was done: NSR, no acute changes from prior ekg. Patient was straight taken for CT head w/o Cont, Dr. Abraham spoke with radiology; no acute bleeding on CT. Patient was transferred to the telemetry, became diaphoretic and nauseated. STAT CBC, CMP, PT/INR, Troponin 3hr, 6hr, 12hr and 18hr, EKG 6hr, 12hr ordered. Dr. Abraham spoke with Dr. Mccarthy about the REED MAKER. STAT Plavix and Aspirin ordered. Case discussed with Dr. Abraham - Constitutional Appears: Confused - Head Head Exam: NORMAL INSPECTION - Eyes Eye Exam: PERRL - Respiratory Exam Respiratory Exam: Clear to Ausculation Bilateral - Cardiovascular Exam Cardiovascular Exam: REGULAR RHYTHM - GI/Abdominal Exam GI & Abdominal Exam: Soft, Normal Bowel Sounds - Neurological Exam Neurological Exam: Alert Additional exam: patient was spontaneously moving all extremities, responding to pain, lethargic , alert awake orientated to her baseline, patient is mumbling words - Extremities Exam Extremities Exam: Normal Inspection Plan - Assessment of Findings&Treatment Plan Follow up Serial Troponin and EKGs <Tanvi Abraham - Last Filed: 01/14/18 07:19> REED MAKER Nurse Assessment - Vital Signs Vital Signs: Rapid Response Vital Sign Blood Pressure 164/82 Pulse Rate 82 Respiratory Rate 12 Temperature 97.4 F Oxygen Saturation 95 - Vital Signs at end of REED MAKER Vital Signs at end of REED MAKER: Rapid Response End Vital Sign Blood Pressure 139/69 Pulse Rate 79 Respiratory Rate 10 Temperature 97.9 F O2 Sat by Pulse Oximetry 99 Attending/Attestation - Attestation I have personally seen and examined this patient.: Yes I have fully participated in the care of the patient.: Yes I have reviewed all pertinent clinical information, including history, physical exam and plan: Yes Notes (Text): 01/14/18 07:17 pt seen examined and discussed with resident Dr. Vargas. Pt LOC in bathroom while urinating, however continued to remain lethargic and difficult to arouse. No focal deficits, no facial droop. CT head negative. Pt acutely developed diaphoresis, chest pain, mild dyspnea. NO acute changes on EKG when repeated. Troponins/EKG trend. Discussed with Dr. Mccarthy after pt transferred to . Agree with findings and plan as above.
[2018-01-11] MEDS ORDERED: Enoxaparin 60 mg Syringe SC STA (14:09)
--- NOTE | 2018-01-11 17:34 | CP.PCM.PN ---
Subjective - Date & Time of Evaluation Date of Evaluation: 02/10/18 Time of Evaluation: 11:40 - Subjective Subjective: Patient had SPEECH SCIENTIST earlier today while she was in the bathroom urinating, she got unresponsive upon arrival patient was lethargic moving all extremities awake, mumbling words EKG NSR CT of the head no acute bleeding. Patient was transferred to telemetry On telemetry patient is awake able to talk confused, refusing medications as per nurse, on 1: 1 Objective - Vital Signs/Intake and Output Vital Signs (last 24 hours): Temp Pulse Resp BP Pulse Ox 97.8 F 98 H 20 149/96 H 98 01/11/18 17:07 01/11/18 17:07 01/11/18 17:07 01/11/18 17:07 01/11/18 17:07 - Medications Medications: Current Medications Enalapril Maleate (Vasotec) 10 mg PO DAILY [facility] Last Admin: 01/11/18 09:41 Dose: 10 mg Enoxaparin Sodium (Lovenox) 50 mg SC Q12 [facility] PRN Reason: Protocol Lorazepam (Ativan) 1 mg IVP Q4 PRN PRN Reason: Agitation Last Admin: 01/09/18 00:07 Dose: 1 mg Lorazepam (Ativan) 1 mg IM Q3 PRN PRN Reason: Agitation Last Admin: 01/09/18 23:07 Dose: 1 mg Metoprolol Succinate (Toprol Xl) 25 mg PO DAILY [facility] Last Admin: 01/11/18 09:41 Dose: 25 mg Pravastatin Sodium (Pravachol) 40 mg PO DAILY [facility] Last Admin: 01/11/18 09:41 Dose: 40 mg - Labs Labs: 01/09/18 05:40 01/09/18 05:40 PT 13.0 Seconds (9.8-13.1) D 01/11/18 05:30 INR 1.2 (0.9-1.2) D 01/11/18 05:30 APTT 70.7 Seconds (25.6-37.1) H 01/09/18 05:40 - Constitutional Appears: Chronically Ill - Head Exam Head Exam: NORMAL INSPECTION - Eye Exam Eye Exam: PERRL - ENT Exam ENT Exam: Normal Exam - Neck Exam Neck Exam: Normal Inspection - Respiratory Exam Respiratory Exam: Clear to Ausculation Bilateral - Cardiovascular Exam Cardiovascular Exam: REGULAR RHYTHM - GI/Abdominal Exam GI & Abdominal Exam: Soft, Normal Bowel Sounds - Extremities Exam Extremities Exam: Normal Inspection - Back Exam Back Exam: NORMAL INSPECTION - Neurological Exam Neurological Exam: Awake Additional comments: able to talk, confused, generalized weakness , no focal motor deficit Assessment and Plan (1) Coumadin toxicity Status: Resolved (2) Dementia with psychosis Status: Acute (3) Schizophrenia Status: Acute (4) HTN (hypertension) Status: Chronic (5) Hyperlipidemia Status: Chronic (6) Hypothyroid Status: Chronic (7) S/P AVR (aortic valve replacement) Status: Chronic (8) Vasovagal syncope Status: Acute - Assessment and Plan (Free Text) Plan: Patient is refusing medications including Coumadin, start Lovenox, monitor if Patient agrees later to take po meds . Patient for involuntary admission to Psychiatric Facility when medically stable
--- NOTE | 2018-01-11 19:12 | PN ---
DATE: 01/11/2018 SUBJECTIVE: The patient apparently fell in the bathroom. The rapid response was activated and the patient was brought to the telemetry unit. There was no documented at the time of the patient's fall in the bathroom. At this time, the patient is lethargic and she does not verbally communicate, but she does not appear to be in any respiratory distress and on the monitor she is in sinus rhythm. PHYSICAL EXAMINATION: VITAL SIGNS: Blood pressure 164/82, heart rate 83, temperature 97.4, respirations 16. HEENT: No pallor. NECK: No JVD. CHEST: Clear. HEART: S1 and S2 regular. EXTREMITIES: No edema. LABORATORY DATA: One set of troponin done today is negative. Today's INR is 1.2. Head CT scan without contrast, no intracranial bleed. ASSESSMENT: 1. Status post iatrogenic coagulopathy with questionable suicidal attempt. 2. Altered mental status. 3. Status post fall in the bathroom. RECOMMENDATIONS: Continue current Toprol XL 25 mg once a day, Vasotec 10 mg once a day. Obtain serial EKG and repeat one more set of troponin. I will administer 5 mg of Coumadin ordered yesterday. Lady Velez DMD
[2018-01-11 19:25] LABS: BASO % 0.2 % (0.0-2.0); EOS % 0.1 % (0.0-4.0); HEMOGLOBIN 14.9 g/dL (12.0-16.0); LYMPH # 0.8 K/uL (1.0-4.3); LYMPH % 7.4 % (20.0-40.0); MEAN CELL VOLUME 89.5 fl (81.0-99.0); MEAN CORPUSCULAR HEMOGLOBIN 29.9 pg (27.0-31.0); MEAN CORPUSCULAR HGB CONC 33.4 g/dL (33.0-37.0); MEAN PLATELET VOLUME 8.8 fl (7.2-11.7); MONO # 0.7 K/uL (0.0-0.8); MONO % 6.2 % (0.0-10.0); NEUT # 9.8 K/uL (1.8-7.0); NEUT % 86.1 % (50.0-75.0); PLATELET COUNT 311 K/uL (130-400); RBC 4.99 Mil/uL (3.80-5.20); RED CELL DISTRIBUTION WIDTH 14.3 % (11.5-14.5); WHITE BLOOD COUNT 11.4 K/uL (4.8-10.8)
[2018-01-11 19:39] LABS: ALB/GLOB RATIO 1.5 (1.0-2.1); ALBUMIN 4.4 g/dL (3.5-5.0); ALT/SGPT 37 U/L (9-52); AST/SGOT 31 U/L (14-36); BLOOD UREA NITROGEN 20 mg/dl (7-17); CALCIUM 9.5 mg/dL (8.4-10.2); GFR AFRICAN-AMERICAN > 60; GFR NON-AFRICAN AMERICAN > 60
[2018-01-11 20:24] LABS: LYMPHOCYTE 12 % (20-50); MONOCYTE 8 % (0-10); NEUTROPHIL 80 % (42-75); TOTAL CELLS COUNTED 100
[2018-01-11 20:25] LABS: PLATELET ESTIMATE NORMAL (NORMAL)
[2018-01-11] MEDS ORDERED: Enoxaparin 60 mg Syringe SC SCH (21:00)
[2018-01-12] MEDS: Enoxaparin 60 mg Syringe SC SCH ×3 (04:39→16:30)
--- NOTE | 2018-01-12 07:08 | CP.PCM.PN ---
Subjective - Date & Time of Evaluation Date of Evaluation: 01/12/18 Time of Evaluation: 07:08 - Subjective Subjective: Ms. Sanchez was seen and examined at the bedside. She is awake, but confused. She is unable to participate during assessment able to move upper extremities. She remains on 1:1 sitter for patient safety. She had an episode of syncope while in the bathroom, PHONOGRAPH CARTRIDGE ASSEMBLER was called , and patient came back to her baseline upon PHONOGRAPH CARTRIDGE ASSEMBLER team arrival. Repeat CT scan of the head yesterday showed no acute findings. CTA of the head and neck is also unremarkable. Objective - Vital Signs/Intake and Output Vital Signs (last 24 hours): Temp Pulse Resp BP Pulse Ox 97.9 F 103 H 18 149/64 99 01/12/18 04:47 01/12/18 04:47 01/12/18 04:47 01/12/18 04:47 01/12/18 04:47 - Medications Medications: Current Medications Enalapril Maleate (Vasotec) 10 mg PO DAILY [facility] Last Admin: 01/11/18 09:41 Dose: 10 mg Enoxaparin Sodium (Lovenox) 50 mg SC Q12 [facility]RISTIN PRN Reason: Protocol Last Admin: 01/12/18 04:39 Dose: 50 mg Lorazepam (Ativan) 1 mg IM Q3 PRN PRN Reason: Agitation Last Admin: 01/09/18 23:07 Dose: 1 mg Metoprolol Succinate (Toprol Xl) 25 mg PO DAILY [facility] Last Admin: 01/11/18 09:41 Dose: 25 mg Pravastatin Sodium (Pravachol) 40 mg PO DAILY [facility] Last Admin: 01/11/18 09:41 Dose: 40 mg - Labs Labs: 01/11/18 17:43 01/11/18 17:43 PT 13.0 Seconds (9.8-13.1) D 01/11/18 05:30 INR 1.2 (0.9-1.2) D 01/11/18 05:30 APTT 70.7 Seconds (25.6-37.1) H 01/09/18 05:40 - Constitutional Appears: No Acute Distress - Head Exam Head Exam: NORMAL INSPECTION - Neurological Exam Neurological Exam: Awake Neuro motor strength exam: Left Upper Extremity: 3, Right Upper Extremity: 3, Left Lower Extremity: 3, Right Lower Extremity: 3 Additional comments: confused unable to participate during assessment. Assessment and Plan (1) Coumadin toxicity Assessment & Plan: Case discussed with Dr. Guzman, continue all current medical regimen. Recommend hydration, follow any cardiac work up since troponin are trending up, treat any electrolyte abnormalities. Status: Acute
[2018-01-12] MEDS: Pravastatin Sodium 40 MG TAB PO SCH (08:50)
[2018-01-12] MEDS: Metoprolol Succinate 25 mg XL Tab PO SCH (08:50)
--- NOTE | 2018-01-12 10:06 | CARD ---
APPROVED REPORT EKG Measurement Heart [id number] <Conclusion> Normal sinus rhythm Possible Left atrial enlargement Borderline ECG
--- NOTE | 2018-01-12 15:40 | CP.PCM.PN ---
Subjective - Date & Time of Evaluation Date of Evaluation: 01/12/18 Time of Evaluation: 12:50 - Subjective Subjective: awake, confused Patient,s family at bedside , She agrees to take po Coumadin Objective - Vital Signs/Intake and Output Vital Signs (last 24 hours): Temp Pulse Resp BP Pulse Ox 98.4 F 87 18 144/85 99 01/12/18 12:01 01/12/18 12:01 01/12/18 12:01 01/12/18 12:01 01/12/18 12:01 - Medications Medications: Current Medications Enalapril Maleate (Vasotec) 10 mg PO DAILY [facility] Last Admin: 01/12/18 08:50 Dose: 10 mg Enoxaparin Sodium (Lovenox) 50 mg SC Q12 CRISTIN PRN Reason: Protocol Last Admin: 01/12/18 09:07 Dose: Not Given Lorazepam (Ativan) 1 mg IM Q3 PRN PRN Reason: Agitation Last Admin: 01/09/18 23:07 Dose: 1 mg Metoprolol Succinate (Toprol Xl) 25 mg PO DAILY [facility] Last Admin: 01/12/18 08:50 Dose: 25 mg Pravastatin Sodium (Pravachol) 40 mg PO DAILY [facility] Last Admin: 01/12/18 08:50 Dose: 40 mg - Labs Labs: 01/11/18 17:43 01/11/18 17:43 PT 13.0 Seconds (9.8-13.1) D 01/11/18 05:30 INR 1.2 (0.9-1.2) D 01/11/18 05:30 APTT 70.7 Seconds (25.6-37.1) H 01/09/18 05:40 - Constitutional Appears: Chronically Ill - Head Exam Head Exam: NORMAL INSPECTION - Eye Exam Eye Exam: PERRL - ENT Exam ENT Exam: Normal Exam - Neck Exam Neck Exam: Normal Inspection - Respiratory Exam Respiratory Exam: Clear to Ausculation Bilateral - Cardiovascular Exam Cardiovascular Exam: REGULAR RHYTHM - GI/Abdominal Exam GI & Abdominal Exam: Soft, Normal Bowel Sounds - Extremities Exam Extremities Exam: Normal Inspection - Back Exam Back Exam: NORMAL INSPECTION - Neurological Exam Neurological Exam: Awake Additional comments: confused , no focal motor deficit - Psychiatric Exam Psychiatric exam: Anxious - Skin Skin Exam: Warm Assessment and Plan (1) Coumadin toxicity Status: Resolved (2) Dementia with psychosis Status: Acute (3) Schizophrenia Status: Acute (4) HTN (hypertension) Status: Chronic (5) Hyperlipidemia Status: Chronic (6) Hypothyroid Status: Chronic (7) S/P AVR (aortic valve replacement) Status: Chronic (8) Vasovagal syncope Status: Acute - Assessment and Plan (Free Text) Plan: continue Lovenox ,monitor if Patient will take Coumadin po, Psychiatric f/u
--- NOTE | 2018-01-12 20:23 | PN ---
DATE: 01/12/2018 SUBJECTIVE: No reported ventricular arrhythmia. PHYSICAL EXAMINATION: VITAL SIGNS: Blood pressure 144/85, heart rate 87, temperature 98.4, respirations 18. HEENT: Normocephalic. CHEST: Clear. HEART: S1 and S2 regular. ABDOMEN: Soft. EXTREMITIES: No edema.+ LABORATORY DATA: Today's troponin 0.21. ASSESSMENT: 1. Status post iatrogenic coagulopathy. 2. Suicidal ideation. 3. Status post recent fall in the hospital bathroom which required rapid response and transferred to the telemetry. A repeat head CT scan done yesterday revealed no intracranial bleed. RECOMMENDATIONS: Continue Toprol XL at 25 mg daily, Vasotec at 10 mg once a day, Pravachol at 40 mg once a day. Resume either therapeutic subcutaneous Lovenox or Warfarin if cleared from the neurological point of view. Thor Koroma MD
[2018-01-13] MEDS: Enoxaparin 60 mg Syringe SC SCH ×2 (04:15→18:15)
[2018-01-13] MEDS: Pravastatin Sodium 40 MG TAB PO SCH (10:01)
[2018-01-13] MEDS: Metoprolol Succinate 25 mg XL Tab PO SCH (10:01)
[2018-01-13 15:21] LABS: INR 1.1 (0.9-1.2); PROTHROMBIN TIME 11.7 Seconds (9.8-13.1)
--- NOTE | 2018-01-13 20:08 | CP.PCM.PN ---
Subjective - Date & Time of Evaluation Date of Evaluation: 01/13/18 - Subjective Subjective: F/U Coumadin Toxicity Awake, confused, not following commands Objective - Vital Signs/Intake and Output Vital Signs (last 24 hours): Temp Pulse Resp BP Pulse Ox 96.8 F L 97 H 16 100/67 99 01/13/18 16:10 01/13/18 16:10 01/13/18 16:10 01/13/18 16:10 01/13/18 16:10 - Medications Medications: Current Medications Enalapril Maleate (Vasotec) 10 mg PO DAILY [facility] Last Admin: 01/13/18 10:02 Dose: 10 mg Enoxaparin Sodium (Lovenox) 50 mg SC Q12@0500,1700 [facility] PRN Reason: Protocol Last Admin: 01/13/18 18:15 Dose: 50 mg Haloperidol Lactate (Haldol) 0.5 mg IVP Q6 PRN PRN Reason: Agitation Last Admin: 01/13/18 16:48 Dose: 0.5 mg Metoprolol Succinate (Toprol Xl) 25 mg PO DAILY [facility] Last Admin: 01/13/18 10:01 Dose: 25 mg Pravastatin Sodium (Pravachol) 40 mg PO DAILY [facility] Last Admin: 01/13/18 10:01 Dose: 40 mg - Labs Labs: 01/11/18 17:43 01/11/18 17:43 PT 11.7 Seconds (9.8-13.1) 01/13/18 14:58 INR 1.1 (0.9-1.2) 01/13/18 14:58 APTT 70.7 Seconds (25.6-37.1) H 01/09/18 05:40 - Constitutional Appears: Chronically Ill - Head Exam Head Exam: NORMAL INSPECTION - Eye Exam Eye Exam: PERRL - ENT Exam ENT Exam: Normal Exam - Neck Exam Neck Exam: Normal Inspection - Respiratory Exam Respiratory Exam: Clear to Ausculation Bilateral - Cardiovascular Exam Cardiovascular Exam: REGULAR RHYTHM - GI/Abdominal Exam GI & Abdominal Exam: Soft, Normal Bowel Sounds - Extremities Exam Extremities Exam: Normal Inspection - Back Exam Back Exam: NORMAL INSPECTION - Neurological Exam Neurological Exam: Awake Additional comments: Confused, no focal motor deficit - Skin Skin Exam: Warm Assessment and Plan (1) Coumadin toxicity Status: Resolved (2) Dementia with psychosis Status: Acute (3) HTN (hypertension) Status: Chronic (4) Hyperlipidemia Status: Chronic (5) Hypothyroid Status: Chronic (6) H/O aortic valve replacement Status: Acute - Assessment and Plan (Free Text) Plan: Continue Lovenox, f/u if Pt refusing Coumadin, f/u Cardiology
--- NOTE | 2018-01-13 20:14 | PN ---
DATE: 01/13/2018 SUBJECTIVE: The patient refused to eat her food with the family member at the bedside who said to me that the patient has prior similar history of coagulopathy, but it was not really due to intentional overdose but really due to the fact that the patient does not recall if she has taken the medicine and she takes extra pills. The patient has paranoid ideation but never had suicidal ideations. PHYSICAL EXAMINATION: VITAL SIGNS: Blood pressure 146/91, heart rate 95, temperature 97, respirations 20. HEENT: No pallor or icterus. CHEST: Clear. HEART: S1 and S2 regular. EXTREMITIES: No edema. ASSESSMENT: 1. Coumadin overdose. 2. Status post aortic valve replacement. 3. History of psychiatric disorder with significant paranoid ideation. The patient was committed more than once in the past according to the patient's family member at the bedside. RECOMMENDATIONS: Continue subcutaneous Lovenox. Continue enalapril 10 mg once a day, Toprol XL 25 mg once a day. I will start Coumadin 5 mg orally today. The plan is to transfer the patient to psych unit at [facility]. Thor Koroma MD
[2018-01-14] MEDS: Enoxaparin 60 mg Syringe SC SCH ×2 (04:55→17:05)
[2018-01-14 06:04] LABS: INR 1.1 (0.9-1.2)
[2018-01-14] MEDS: Metoprolol Succinate 25 mg XL Tab PO SCH (10:07)
[2018-01-14] MEDS: Pravastatin Sodium 40 MG TAB PO SCH (10:07)
--- NOTE | 2018-01-14 14:17 | CP.PCM.PN ---
Subjective - Date & Time of Evaluation Date of Evaluation: 01/14/18 Time of Evaluation: 10:20 - Subjective Subjective: F/U Coumadin Toxicity Pt awake, more alert, calm, answering questions, She is taking medications. Objective - Vital Signs/Intake and Output Vital Signs (last 24 hours): Temp Pulse Resp BP Pulse Ox 99 F 106 H 20 128/73 96 01/14/18 12:00 01/14/18 12:00 01/14/18 12:00 01/14/18 12:00 01/14/18 12:00 - Medications Medications: Current Medications Enalapril Maleate (Vasotec) 10 mg PO DAILY [facility] Last Admin: 01/14/18 10:07 Dose: 10 mg Enoxaparin Sodium (Lovenox) 50 mg SC Q12@0500,1700 [facility] PRN Reason: Protocol Last Admin: 01/14/18 04:55 Dose: 50 mg Haloperidol Lactate (Haldol) 0.5 mg IVP Q6 PRN PRN Reason: Agitation Last Admin: 01/13/18 16:48 Dose: 0.5 mg Metoprolol Succinate (Toprol Xl) 25 mg PO DAILY [facility] Last Admin: 01/14/18 10:07 Dose: 25 mg Pravastatin Sodium (Pravachol) 40 mg PO DAILY [facility] Last Admin: 01/14/18 10:07 Dose: 40 mg Warfarin Sodium (Coumadin) 4 mg PO QD5 [facility] PRN Reason: Protocol Stop: 01/14/18 17:01 - Labs Labs: 01/11/18 17:43 01/11/18 17:43 PT 12.0 Seconds (9.8-13.1) 01/14/18 04:20 INR 1.1 (0.9-1.2) 01/14/18 04:20 APTT 70.7 Seconds (25.6-37.1) H 01/09/18 05:40 - Constitutional Appears: Chronically Ill - Head Exam Head Exam: NORMAL INSPECTION - Eye Exam Eye Exam: PERRL - ENT Exam ENT Exam: Normal Exam - Neck Exam Neck Exam: Normal Inspection - Respiratory Exam Respiratory Exam: Clear to Ausculation Bilateral - Cardiovascular Exam Cardiovascular Exam: REGULAR RHYTHM - GI/Abdominal Exam GI & Abdominal Exam: Soft, Normal Bowel Sounds - Extremities Exam Extremities Exam: Normal Inspection - Back Exam Back Exam: NORMAL INSPECTION - Neurological Exam Neurological Exam: Awake Additional comments: Confused, no focal motor deficit. - Psychiatric Exam Psychiatric exam: Anxious - Skin Skin Exam: Warm Assessment and Plan (1) Coumadin toxicity Status: Resolved (2) Dementia with psychosis Status: Acute (3) HTN (hypertension) Status: Chronic (4) Hyperlipidemia Status: Chronic (5) Hypothyroid Status: Chronic (6) H/O aortic valve replacement Status: Chronic - Assessment and Plan (Free Text) Plan: Patient is medically clear to be transfer for [facility].
--- NOTE | 2018-01-14 14:28 | CARD ---
APPROVED REPORT EKG Measurement Heart [id number] <Conclusion> Normal sinus rhythm Minimal voltage criteria for LVH, may be normal variant T wave abnormality, consider lateral ischemia Abnormal ECG
--- NOTE | 2018-01-14 19:46 | PN ---
DATE: 01/14/2018 SUBJECTIVE: The patient did eat her food today. She is slightly more communicating compared to yesterday and she did ask about her . PHYSICAL EXAMINATION: VITAL SIGNS: Blood pressure 128/73, heart rate 106, temperature 99, respiration 20. HEENT: Normocephalic. CHEST: Clear. HEART: S1, S2 regular. EXTREMITIES: No edema. LABORATORY DATA: Today's INR is 1.1. ASSESSMENT: 1. Status post Coumadin toxicity. 2. Status post aortic valve replacement. 3. Paranoid ideation. 4. Hypertension. RECOMMENDATIONS: Continue current therapeutic subcutaneous Lovenox twice a day, Toprol XL 25 mg once a day, Vasotec at 10 mg once a day, Pravachol at 40 mg once a day. The patient will receive Coumadin 4 mg p.o. today. The case was discussed with the WELDING MACHINE OPERATOR THERMIT and case is awaiting transfer to [facility] Psych Unit. Thor Koroma MD
[2018-01-15 00:36] VITALS: RESP 18
[2018-01-15 04:53] VITALS: O2SAT 96
[2018-01-15] MEDS: Enoxaparin 60 mg Syringe SC SCH (04:58)
[2018-01-15 06:12] LABS: INR 1.1 (0.9-1.2); PROTHROMBIN TIME 12.1 Seconds (9.8-13.1)
[2018-01-15 06:28] LABS: BLOOD UREA NITROGEN 21 mg/dl (7-17); CALCIUM 8.9 mg/dL (8.4-10.2); GFR AFRICAN-AMERICAN > 60; GFR NON-AFRICAN AMERICAN > 60
[2018-01-15 06:44] LABS: T4 9.99 ug/dl (5.5-11.0)
[2018-01-15 07:04] LABS: HEMOGLOBIN 13.8 g/dL (12.0-16.0); MEAN CELL VOLUME 90.5 fl (81.0-99.0); MEAN CORPUSCULAR HEMOGLOBIN 30.1 pg (27.0-31.0); MEAN CORPUSCULAR HGB CONC 33.3 g/dL (33.0-37.0); RBC 4.58 Mil/uL (3.80-5.20); RED CELL DISTRIBUTION WIDTH 14.5 % (11.5-14.5)
[2018-01-15 08:11] VITALS: BP 136/72; PULSE 97; TEMP 97.6
[2018-01-15] MEDS: Metoprolol Succinate 25 mg XL Tab PO SCH (09:50)
[2018-01-15] MEDS: Pravastatin Sodium 40 MG TAB PO SCH (09:50)
[2018-01-16] MEDS ORDERED: Levothyroxine 88 MCG TAB PO SCH (06:30)
== END 2018-01-15 11:41 | DRG 918 ==
LOC: H.ER 11:15 → H.ERHOLD 16:46 → H.MEDSURG1 20:50 → H.TEL 01-11 11:16
PROVIDERS: ADMIT Internal Medicine Pulmonary Disease; ATTEND Internal Medicine Pulmonary Disease
DX: T45.511A Poisoning by anticoagulants, accidental (unintentional), initial encounter (principal); N39.0 Urinary tract infection, site not specified; D68.8 Other specified coagulation defects; F20.1 Disorganized schizophrenia; R45.851 Suicidal ideations; F03.90 Unspecified dementia, unspecified severity, without behavioral disturbance, psychotic disturbance, mood disturbance, and anxiety; F32.9 Major depressive disorder, single episode, unspecified; E03.9 Hypothyroidism, unspecified; I10 Essential (primary) hypertension; E78.5 Hyperlipidemia, unspecified; Z95.2 Presence of prosthetic heart valve; Z79.01 Long term (current) use of anticoagulants; Z88.0 Allergy status to penicillin; Y92.009 Unspecified place in unspecified non-institutional (private) residence as the place of occurrence of the external cause